=== PATIENT | female | born 1955 | race Caucasian/White ===

== ENCOUNTER 2017-03-14 09:17 | Outpatient (RCR) | payer BC ==
[2017-01-11 10:25] LABS: BASOPHILS % (AUTO) 0 % (0-10); EOSINOPHILS # (AUTO) 0.2 10^3/uL (0.0-0.3); EOSINOPHILS % (AUTO) 3 % (0-10); LYMPHOCYTES # (AUTO) 1.5 X 10^3 (1.0-4.0); LYMPHOCYTES % (AUTO) 29 % (12-44); MEAN CORPUSCULAR HEMOGLOBIN 29 PG (25-34); MEAN CORPUSCULAR HGB CONC 33 G/DL (32-36); MEAN CORPUSCULAR VOLUME 88 FL (80-99); MEAN PLATELET VOLUME 8.6 FL (7.4-10.4); MONOCYTES # (AUTO) 0.5 X 10^3 (0.0-1.0); MONOCYTES % (AUTO) 10 % (0-12); NEUTROPHILS # (AUTO) 2.9 X 10^3 (1.8-7.8); NEUTROPHILS % (AUTO) 57 % (42-75); PLATELET COUNT 365 10^3/uL (130-400); RED CELL DISTRIBUTION WIDTH 14.4 % (10.0-14.5)
[2017-01-11 10:54] LABS: ALANINE AMINOTRANSFERASE 33 U/L (0-55); ALBUMIN 4.3 G/DL (3.2-4.5); ANION GAP 7 MMOL/L (5-14); ASPARTATE AMINO TRANSFERASE 23 U/L (5-34); BILIRUBIN,TOTAL 0.4 MG/DL (0.1-1.0); BLOOD UREA NITROGEN 14 MG/DL (7-18); BUN/CREATININE RATIO 17; CALCIUM 9.9 MG/DL (8.5-10.1); CARBON DIOXIDE 28 MMOL/L (21-32); CHLORIDE 106 MMOL/L (98-107); CREATININE SERUM 0.81 MG/DL (0.60-1.30); GFR ESTIMATED > 60; GLUCOSE 84 MG/DL (70-105); POTASSIUM 4.2 MMOL/L (3.6-5.0); SODIUM 141 MMOL/L (135-145); TOTAL PROTEIN 7.1 G/DL (6.4-8.2)
[2017-01-11 11:50] LABS: PEP REPORT SEE PATH REPORT
[2017-01-12 02:03] LABS: IMMUNOGLOBULIN IGA 177 mg/dL (71-263); IMMUNOGLOBULIN IGG 973 mg/dL (672-1680)
[2017-01-12 04:15] LABS: LIGHT CHAIN KAPPA SERUM QUANT 14.24 mg/L (3.30-19.40); LIGHT CHAIN LAMBDA SERUM QUANT 10.31 mg/L (5.71-26.30)
[2017-01-12 06:56] LABS: IMMUNOGLOBULIN IGM 38 mg/dL (47-209)
[2017-01-13 12:41] LABS: CLIN PATHOLOGY REPORT FOOTNOTE
[2017-01-13 12:42] LABS: SERUM PROTEIN ELEC DETAIL L-17-0002081
[~2017-03-14 09:17] MED LIST: ACID1TAB5 PO; ASCO500T20 PO; BETA CAROTENE PO; CALC-80 PO; CEFD300C3 PO; CLIN300C3 PO; FOLI0.8T PO; GLUC1TAB60 PO; LVT.088T PO; MELO-195 PO; METR500T PO; SIMV40TA2 PO; VITA1TAB74 PO; [UNRECOGNIZED DRUG - OTHER] PO
[2017-03-14 09:29] LABS: BASOPHILS % (AUTO) 0 % (0-10); EOSINOPHILS # (AUTO) 0.1 10^3/uL (0.0-0.3); EOSINOPHILS % (AUTO) 1 % (0-10); LYMPHOCYTES # (AUTO) 1.2 X 10^3 (1.0-4.0); LYMPHOCYTES % (AUTO) 23 % (12-44); MEAN CORPUSCULAR HEMOGLOBIN 29 PG (25-34); MEAN CORPUSCULAR HGB CONC 32 G/DL (32-36); MEAN CORPUSCULAR VOLUME 89 FL (80-99); MEAN PLATELET VOLUME 9.2 FL (7.4-10.4); MONOCYTES # (AUTO) 0.6 X 10^3 (0.0-1.0); MONOCYTES % (AUTO) 12 % (0-12); NEUTROPHILS # (AUTO) 3.3 X 10^3 (1.8-7.8); NEUTROPHILS % (AUTO) 64 % (42-75); PLATELET COUNT 229 10^3/uL (130-400); RED BLOOD COUNT 4.63 10^6/uL (4.35-5.85); RED CELL DISTRIBUTION WIDTH 14.7 % (10.0-14.5); WHITE BLOOD COUNT 5.2 10^3/uL (4.3-11.0)
[2017-03-14 12:15] LABS: BAND NEUTROPHILS 4 %; BASOPHILS % (MANUAL) 0 %; EOSINOPHILS % (MANUAL) 1 %; LYMPHOCYTES % (MANUAL) 22 %; NEUTROPHILS % (MANUAL) 62 %; POIKILOCYTOSIS SLIGHT; REACTIVE LYMPHOCYTES 3 %
== END 2017-04-11 | disposition home or self-care (01) ==
LOC: ONC 09:17
PROVIDERS: ATTEND Internal Medicine Hematology & Oncology
DX: D72.819 Decreased white blood cell count, unspecified (principal); E03.9 Hypothyroidism, unspecified; E78.00 Pure hypercholesterolemia, unspecified; Z87.01 Personal history of pneumonia (recurrent); Z79.899 Other long term (current) drug therapy
CPT/HCPCS: 36415; 80053; 82784; 83883; 84155; 84165; 85007; 85025; 85027; 99213; 99214

== ENCOUNTER 2017-04-18 11:52 | Inpatient (IN) | payer BC ==
[~2017-04-18] VITALS: Ht 165.1 cm; Wt 49.6 kg
[2017-04-18] MEDS ORDERED: ONDANSETRON 4 MG/2 ML (SDV) Z0FRAN IV PRN (12:15)
[2017-04-18] MEDS ORDERED: PATIENT MAY USE OWN MEDS, ALL PO SCH (12:15)
--- NOTE | 2017-04-18 12:37 | History & Physicial ---
History of Present Illness History of Present Illness Reason for visit/HPI This is a 61 year old female who presented to by office with fever, joint pain and rash. She stated she had been in [place] last week and on her way home noticed that she was having joint pains especially in her shoulders, upper arms and knees. She then spiked a fever and over the weekend she broke out in a rash to both upper arms and to the left knee. She noticed this morning that the rash was also starting on the right knee. She presented to my office for evaluation and was found to have a vesicular shingles looking rash to both upper arms and bilateral knees. It was decided to directly admit her for disseminated shingles and further evaluation and treatment. Date of Admission I consulted on this patient on 04/18/17 12:32 Attending Physician Alanna Gibbons DO Admitting Physician Alanna Gibbons DO Consult Allergies and Home Medications Allergies Coded Allergies: Meperidine HCl (Verified Allergy, Unknown, 06/01/11) Codeine (Verified Allergy, 10/15/10) Home Medications Acidophilus/Bulgaricus 1 Each Tab.chew, 2 EACH PO BID, (Reported) Ascorbic Acid 500 Mg Tablet, 500 MG PO DAILY, (Reported) Calcium Carbonate/Vitamin D3 1 Each Tablet, 1 EACH PO DAILY, (Reported) Clindamycin Hcl 300 Mg Capsule, 1 EACH PO TID, (Reported) Folic Acid 0.8 Mg Tablet, 1 EACH PO DAILY, (Reported) Swnzaqsf-Eczwclu-Msoo 149-Hyal 1 Each Tablet, 2 EACH PO, (Reported) Levothyroxine Sodium 88 Mcg Tablet, 1 EACH PO DAILY, (Reported) Meloxicam 15 Mg Tablet, 1 EACH PO DAILY, (Reported) Metronidazole 500 Mg Tab, 1 EACH PO TID, (Reported) Vitamin B Complex 1 Each Tablet, 1 EACH PO, (Reported) Past Mjysjqb-Jwpejb-Bazirn Hx Respiratory Hx Respiratory Disorders: Yes Cardiovascular Hx Cardiovascular Disorders: No Neurological Hx Neurological Disorders: No Reproductive System Hx Reproductive Disorders: No Genitourinary Hx Genitourinary Disorders: No Gastrointestinal Hx Gastrointestinal Disorders: No Musculoskeletal Hx Musculoskeletal Disorders: Yes Endocrine Hx Endocrine Disorders: Yes HEENT HX ENT Disorders: No Psychosocial Hx Psychiatric Problems: No Blood Transfusions Hx Blood Disorders: No Constitutional: fever, weakness EENTM: No blurred vision, No dental problems, No double vision, No ear discharge, No ear pain, No epistaxis, No eye pain, No hearing loss, No hoarseness, No mouth pain, No mouth swelling, No no symptoms reported, No nose congestion, No nose pain, No other, No see HPI, No tearing, No throat pain, No throat swelling, No vision loss Respiratory: cough (feels like from allergeis) Cardiovascular: No no symptoms reported, No see HPI, No chest pain, No edema, No Hx of Intervention, No palpitations, No syncope, No vascular heart diseas, No other Gastrointestinal: No RUQ, No LUQ, No RLQ, No LLQ, No no symptoms reported, No see HPI, No abdominal pain, No constipation, No diarrhea, No dysphagia, No hematemesis, No heartburn, No jaundice, No loss of appetite, No melena, No nausea, No vomiting, No other Genitourinary: No no symptoms reported, No see HPI, No decreased output, No discharge, No dysuria, No frequency, No hematuria, No hesitancy, No incontinence , No nocturia, No pain, No other Musculoskeletal: joint pain Skin: rash Psychiatric/Neurological: Denies No Symptoms Reported, Denies See HPI, Denies Anxiety, Denies Depressed, Denies Emotional Problems, Denies Headache, Denies Numbness, Denies Paresthesia, Denies Pre-Existing Deficit, Denies Seizure, Denies Tingling, Denies Tremors, Denies Weakness, Denies Other Physical Exam Vital Signs Capillary Refill : General Appearance: Mild Distress HEENT: Normal ENT Inspection Neck: Non Tender, Supple Respiratory: Lungs Clear Cardiovascular: Regular Rate, Rhythm Gastrointestinal: Normal Bowel Sounds, Non Tender, Soft Rectal: Deferred Back: No CVA Tenderness Extremity: Non Tender, No Calf Tenderness, No Pedal Edema Neurologic/Psychiatric: Alert, Oriented x3 Skin: Rash (bilateral upper arms and bilateral knees with vesicular rash with erythemic base) Assessment/Plan Assessment and Plan 1. Disseminated Shingles--Admit and check lab including tick titers and blood cultures, cover with IV zovirax and toradol for pain Problems: ALANNA GIBBONS DO April 18, 2017 12:37
[2017-04-18] MEDS ORDERED: NFBIOT1000 PO (13:26)
[2017-04-18] MEDS ORDERED: SIMV40TA4 PO (13:26)
[2017-04-18] MEDS ORDERED: VITA400C60 PO (13:26)
[2017-04-18] MEDS ORDERED: LEVO75TA6 PO (13:26)
[2017-04-18] MEDS ORDERED: GLUC1TAB29 PO (13:28)
[2017-04-18] MEDS ORDERED: MELA1TAB10 PO (13:32)
[2017-04-18] MEDS ORDERED: BETA2500 PO (13:32)
[2017-04-18] MEDS: NS IV 1000 ML 1,000 ML IV SCH ×2 (13:43→22:01)
[2017-04-18] MEDS: ACETAMINOPHEN 325 MG TABLET/CAPLET (TYLENOL) PO PRN (13:47)
[2017-04-18] MEDS: KETOROLAC 30 MG/ML VIAL IV SCH ×2 (13:48→22:01)
[2017-04-18] MEDS ORDERED: CATHETER FLUSH 10 ML SYR IV PRN (14:00)
[2017-04-18] MEDS ORDERED: ACYCLOVIR INJECTION 800 MG in NS (IVPB) 250 ML IV SCH (14:00)
[2017-04-18] MEDS: ACYCLOVIR INJECTION 800 MG in NS (IVPB) 250 ML IV SCH ×2 (14:11→22:01)
[2017-04-18 14:16] VITALS: BP 124/74
[2017-04-18 15:07] LABS: BASOPHILS % (AUTO) 0 % (0-10); EOSINOPHILS % (AUTO) 1 % (0-10); LYMPHOCYTES # (AUTO) 1.1 X 10^3 (1.0-4.0); LYMPHOCYTES % (AUTO) 22 % (12-44); MEAN CORPUSCULAR HEMOGLOBIN 29 PG (25-34); MEAN CORPUSCULAR HGB CONC 32 G/DL (32-36); MEAN CORPUSCULAR VOLUME 89 FL (80-99); MEAN PLATELET VOLUME 9.3 FL (7.4-10.4); MONOCYTES # (AUTO) 0.7 X 10^3 (0.0-1.0); MONOCYTES % (AUTO) 14 % (0-12); NEUTROPHILS % (AUTO) 63 % (42-75); PLATELET COUNT 192 10^3/uL (130-400); RED BLOOD COUNT 4.52 10^6/uL (4.35-5.85); RED CELL DISTRIBUTION WIDTH 14.1 % (10.0-14.5); WHITE BLOOD COUNT 4.8 10^3/uL (4.3-11.0)
[2017-04-18 15:34] LABS: ALANINE AMINOTRANSFERASE 17 U/L (0-55); ANION GAP 7 MMOL/L (5-14); ASPARTATE AMINO TRANSFERASE 21 U/L (5-34); BILIRUBIN,TOTAL 0.6 MG/DL (0.1-1.0); BLOOD UREA NITROGEN 12 MG/DL (7-18); BUN/CREATININE RATIO 16; CALCIUM 9.5 MG/DL (8.5-10.1); CARBON DIOXIDE 26 MMOL/L (21-32); CHLORIDE 105 MMOL/L (98-107); CREATININE SERUM 0.74 MG/DL (0.60-1.30); GFR ESTIMATED > 60; GLUCOSE 143 MG/DL (70-105); SODIUM 138 MMOL/L (135-145); TOTAL PROTEIN 6.8 G/DL (6.4-8.2); hs C REACTIVE PROTEIN 1.34 MG/DL (0.00-0.50)
[2017-04-18 15:55] VITALS: BP 97/59
[2017-04-18 15:57] LABS: THYROID STIMULATING HORMONE 1.65 UIU/ML (0.35-4.94)
[2017-04-18 17:58] LABS: BILIRUBIN,URINE NEGATIVE (NEGATIVE); KETONES,URINE NEGATIVE (NEGATIVE); LEUKOCYTE ESTERASE ,URINE NEGATIVE (NEGATIVE); NITRITE,URINE NEGATIVE (NEGATIVE); PH,URINE 7 (5-9); PROTEIN,URINE NEGATIVE (NEGATIVE); UROBILINOGEN,URINE NORMAL (NORMAL)
[2017-04-18 18:09] LABS: SQUAMOUS EPITHELIAL CELL,UR 0-2 /HPF; WBC,URINE RARE /HPF
[2017-04-18 20:18] VITALS: BP 96/62
[2017-04-18] MEDS: TEMAZEPAM 7.5 MG CAP (RESTORIL) PO PRN (22:10)
[2017-04-19 01:00] VITALS: BP 93/54
[2017-04-19 04:00] VITALS: BP 94/60
[2017-04-19] MEDS: NS IV 1000 ML 1,000 ML IV SCH ×2 (04:18→08:26)
[2017-04-19] MEDS: KETOROLAC 30 MG/ML VIAL IV SCH ×3 (05:17→21:17)
[2017-04-19] MEDS: LEVOTHYROXINE 75 MCG (LEVOTHROID) TABLET PO SCH (05:17)
[2017-04-19] MEDS: ACYCLOVIR INJECTION 800 MG in NS (IVPB) 250 ML IV SCH ×3 (05:17→21:17)
[2017-04-19 08:00] VITALS: BP 98/53
[2017-04-19 13:38] LABS: EHRLICHIA CHAFFEENSIS G ABY <1:16 (<1:16)
[2017-04-19 13:42] LABS: IGG ROCKY MOUNTAIN SPOTTED FEV <1:16 (<1:16); IGM ROCKY MOUNTAIN SPOTTED FEV <1:10 (<1:10)
[2017-04-19 15:35] VITALS: BP 94/58
--- NOTE | 2017-04-19 18:16 | Progress Note (SOAP) ---
Subjective Subjective/Events-last exam Fwup disseminated shingles. Joints not as sore and rash not as red and seems improved on knees. Objective Exam Vital Signs Date Time Temp Pulse Resp B/P (MAP) Pulse Ox O2 Delivery O2 Flow Rate FiO2 04/19/17 15:35 99.7 78 20 94/58 97 04/19/17 08:00 99.0 60 20 98/53 98 04/19/17 04:00 97.7 55 16 94/60 100 04/19/17 01:00 93/54 04/19/17 00:00 98.0 61 16 95 04/18/17 20:18 97.9 56 20 96/62 98 I & O 04/19/17 07:00 Intake Total 2518 ml Output Total 1200 ml Balance 1318 ml Capillary Refill : General Appearance: No Apparent Distress Neck: Supple Respiratory: Lungs Clear Cardiovascular: Regular Rate, Rhythm Extremity: Non Tender, No Calf Tenderness, No Pedal Edema Neurologic/Psychiatric: Alert, Oriented x3 Skin: Rash (bilateral vesicles to arms with less erythema and bilateral knee vesicles improving) Results Lab Microbiology 04/18/17 Blood Culture - Preliminary, Resulted No growth Assessment/Plan Assessment/Plan Assess & Plan/Chief Complaint 1. Disseminated Shingles--continue IV zovirax and recheck lab in AM Clinical Quality Measures DVT/VTE Risk/Contraindication: Risk Factor Score Per Nursin RFS Level Per Nursing on Admit: 2=Moderate DELPHINE ADAMS DO April 19, 2017 18:16
[2017-04-19] MEDS: ACETAMINOPHEN 325 MG TABLET/CAPLET (TYLENOL) PO PRN (18:37)
[2017-04-19 18:38] LABS: LYME AB G M 0.03 Index (0.00-0.89)
[2017-04-19] MEDS: TEMAZEPAM 7.5 MG CAP (RESTORIL) PO PRN (22:48)
[2017-04-20 00:30] VITALS: BP 96/61
[2017-04-20] MEDS: LEVOTHYROXINE 75 MCG (LEVOTHROID) TABLET PO SCH (05:14)
[2017-04-20] MEDS: ACYCLOVIR INJECTION 800 MG in NS (IVPB) 250 ML IV SCH ×3 (05:15→21:20)
[2017-04-20] MEDS: KETOROLAC 30 MG/ML VIAL IV SCH (05:15)
[2017-04-20 05:21] LABS: BASOPHILS % (AUTO) 1 % (0-10); EOSINOPHILS # (AUTO) 0.1 10^3/uL (0.0-0.3); EOSINOPHILS % (AUTO) 1 % (0-10); LYMPHOCYTES % (AUTO) 25 % (12-44); MEAN CORPUSCULAR HEMOGLOBIN 29 PG (25-34); MEAN CORPUSCULAR HGB CONC 32 G/DL (32-36); MEAN CORPUSCULAR VOLUME 90 FL (80-99); MEAN PLATELET VOLUME 9.9 FL (7.4-10.4); MONOCYTES # (AUTO) 0.6 X 10^3 (0.0-1.0); MONOCYTES % (AUTO) 16 % (0-12); NEUTROPHILS # (AUTO) 2.4 X 10^3 (1.8-7.8); NEUTROPHILS % (AUTO) 57 % (42-75); PLATELET COUNT 162 10^3/uL (130-400); RED BLOOD COUNT 3.79 10^6/uL (4.35-5.85); RED CELL DISTRIBUTION WIDTH 14.3 % (10.0-14.5); WHITE BLOOD COUNT 4.1 10^3/uL (4.3-11.0)
[2017-04-20 05:38] LABS: ALANINE AMINOTRANSFERASE 21 U/L (0-55); ALBUMIN 3.1 G/DL (3.2-4.5); ANION GAP 7 MMOL/L (5-14); ASPARTATE AMINO TRANSFERASE 25 U/L (5-34); BILIRUBIN,TOTAL 0.3 MG/DL (0.1-1.0); BLOOD UREA NITROGEN 10 MG/DL (7-18); BUN/CREATININE RATIO 14; CALCIUM 8.2 MG/DL (8.5-10.1); CARBON DIOXIDE 21 MMOL/L (21-32); CHLORIDE 116 MMOL/L (98-107); CREATININE SERUM 0.74 MG/DL (0.60-1.30); GFR ESTIMATED > 60; GLUCOSE 97 MG/DL (70-105); POTASSIUM 4.4 MMOL/L (3.6-5.0); SODIUM 144 MMOL/L (135-145); TOTAL PROTEIN 5.2 G/DL (6.4-8.2)
[2017-04-20 07:41] LABS: LYME AB INTERP Negative (Negative)
[2017-04-20 07:53] VITALS: BP 96/60
--- NOTE | 2017-04-20 13:06 | Progress Note (SOAP) ---
Subjective Subjective/Events-last exam Fwup disseminated shingles. Joints not as sore but may be more lesions to arms. Objective Exam Vital Signs Date Time Temp Pulse Resp B/P (MAP) Pulse Ox O2 Delivery O2 Flow Rate FiO2 04/20/17 07:53 98.5 67 20 96/60 95 04/20/17 00:30 97.2 63 20 96/61 96 04/19/17 19:30 99.9 04/19/17 15:35 99.7 78 20 94/58 97 I & O 04/20/17 07:00 Intake Total 2872 ml Output Total 3650 ml Balance -778 ml Capillary Refill : General Appearance: No Apparent Distress Neck: Supple Neurologic/Psychiatric: Alert, Oriented x3 Skin: Rash (more vesicles to bilateral upper arms) Results Lab Laboratory Tests 04/20/17 04:30: White Blood Count 4.1L, Red Blood Count 3.79L, Hemoglobin 10.9L, Hematocrit 34L , Mean Corpuscular Volume 90, Mean Corpuscular Hemoglobin 29, Mean Corpuscular Hemoglobin Concent 32, Red Cell Distribution Width 14.3, Platelet Count 162, Mean Platelet Volume 9.9, Neutrophils (%) (Auto) 57, Lymphocytes (%) (Auto) 25, Monocytes (%) (Auto) 16H, Eosinophils (%) (Auto) 1, Basophils (%) (Auto) 1, Neutrophils # (Auto) 2.4, Lymphocytes # (Auto) 1.0, Monocytes # (Auto) 0.6, Eosinophils # (Auto) 0.1, Basophils # (Auto) 0.0, Sodium Level 144, Potassium Level 4.4, Chloride Level 116H, Carbon Dioxide Level 21, Anion Gap 7, Blood Urea Nitrogen 10, Creatinine 0.74, Estimat Glomerular Filtration Rate > 60, BUN/ Creatinine Ratio 14, Glucose Level 97, Calcium Level 8.2L, Total Bilirubin 0.3, Aspartate Amino Transf (AST/SGOT) 25, Alanine Aminotransferase (ALT/SGPT) 21, Alkaline Phosphatase 51, Total Protein 5.2L, Albumin 3.1L Microbiology 04/18/17 Blood Culture - Preliminary, Resulted No growth Assessment/Plan Assessment/Plan Assess & Plan/Chief Complaint 1. Disseminated Shingles--continue IV zovirax and recheck lab in AM Clinical Quality Measures DVT/VTE Risk/Contraindication: Risk Factor Score Per Nursin RFS Level Per Nursing on Admit: 2=Moderate DELPHINE ADAMS DO April 20, 2017 1:06 pm
[2017-04-20] MEDS ORDERED: diphenhydrAMINE 50 MG/ML INJ (BENADRYL) IVP NR (14:00)
[2017-04-20] MEDS ORDERED: FAMOTIDINE 20MG/2ML IV (PEPCID) IVP NR (14:00)
[2017-04-20 15:37] VITALS: BP 97/59
[2017-04-20] MEDS ORDERED: FAMOTIDINE 20MG/2ML IV (PEPCID) IVP SCH (21:00)
[2017-04-20] MEDS: TEMAZEPAM 7.5 MG CAP (RESTORIL) PO PRN (22:38)
[2017-04-21 00:22] VITALS: BP 96/60
[2017-04-21 06:11] LABS: BASOPHILS % (AUTO) 1 % (0-10); EOSINOPHILS # (AUTO) 0.1 10^3/uL (0.0-0.3); EOSINOPHILS % (AUTO) 2 % (0-10); LYMPHOCYTES # (AUTO) 1.2 X 10^3 (1.0-4.0); LYMPHOCYTES % (AUTO) 28 % (12-44); MEAN CORPUSCULAR HEMOGLOBIN 29 PG (25-34); MEAN CORPUSCULAR HGB CONC 32 G/DL (32-36); MEAN CORPUSCULAR VOLUME 90 FL (80-99); MEAN PLATELET VOLUME 9.7 FL (7.4-10.4); MONOCYTES # (AUTO) 0.5 X 10^3 (0.0-1.0); MONOCYTES % (AUTO) 12 % (0-12); NEUTROPHILS # (AUTO) 2.5 X 10^3 (1.8-7.8); NEUTROPHILS % (AUTO) 58 % (42-75); PLATELET COUNT 167 10^3/uL (130-400); RED CELL DISTRIBUTION WIDTH 14.5 % (10.0-14.5); WHITE BLOOD COUNT 4.4 10^3/uL (4.3-11.0)
[2017-04-21] MEDS: LEVOTHYROXINE 75 MCG (LEVOTHROID) TABLET PO SCH (06:13)
[2017-04-21] MEDS: ACYCLOVIR INJECTION 800 MG in NS (IVPB) 250 ML IV SCH (06:14)
[2017-04-21 08:00] VITALS: BP 105/63
[2017-04-21] MEDS ORDERED: DIPH25CA79 PO (08:47)
[2017-04-21] MEDS ORDERED: VALA10004 PO (08:47)
[2017-04-21] MEDS ORDERED: CETI10CA PO (08:47)
[2017-04-21] MEDS ORDERED: FAMO-119 PO (08:47)
--- NOTE | 2017-04-21 08:48 | Discharge Inst-Simple/Standard ---
Discharge Inst-Standard Discharge Medications New, Converted or Re-Newed RX: Transmitted to Pharmacy Patient Instructions/Follow Up Plan of Care/Instructions/FU: Fwup with me Tuesday or Tuesday of next week Activity as Tolerated: Yes Discharge Diet: No Restrictions Planned Outpatient Orders/Ref. Pneu Vac Indicated: Yes DELPHINE ADAMS DO April 21, 2017 8:48 am
[2017-04-21] MEDS ORDERED: LEVO75TA6 PO (08:49)
[2017-04-21] MEDS ORDERED: FAMOTIDINE 20 MG (PEPCID) TABLET PO SCH (09:00)
== END 2017-04-21 10:50 | disposition home or self-care (01) | DRG 866 ==
LOC: 4TH 12:35
PROVIDERS: ADMIT Family Medicine; ATTEND Family Medicine
DX: B02.7 Disseminated zoster (principal)
CPT/HCPCS: 36415; 80053; 81000; 84443; 85025; 86141; 86618; 86666; 86668; 86757; 87040

== ENCOUNTER → 2017-07-13 | Outpatient (CLI) | payer BC ==
[~2017-07-13] MED LIST changes: +BETA2500 PO; +CETI10CA PO; +DIPH25CA79 PO; +FAMO-119 PO; +GLUC1TAB29 PO; +LEVO75TA6 PO; +MELA1TAB10 PO; +NFBIOT1000 PO; +SIMV40TA4 PO; +VALA10004 PO; +VITA400C60 PO
--- NOTE | 2017-07-13 19:12 | Diagnostic Imaging Report ---
INDICATION: Digital mammogram bilateral screening with tomosynthesis. This study was compared to the prior exam of 07/12/16, 07/09/15 and 07/08/14. At this time, there are no current complaints. The current study was also evaluated with a Computer Aided Detection (CAD) system. FINDINGS: The fibroglandular tissue in both breasts is heterogeneously dense. This does limit the sensitivity of this exam. When compared to the prior study, there does not appear to have been any significant change. There is no primary or secondary sign of malignancy noted. The 3D tomographic views also fail to show any sign of malignancy. IMPRESSION: There is no evidence of malignancy. ACR BI-RADS Category 1: Negative. Result letter will be mailed to the patient. Note: At least 10% of breast cancer is not imaged by mammography. Dictated by: Dictated on workstation # [id number]
== END ==
LOC: RAD 10:23
PROVIDERS: ATTEND Family Medicine
DX: Z12.31 Encounter for screening mammogram for malignant neoplasm of breast (principal)
CPT/HCPCS: 77067

== ENCOUNTER → 2018-03-14 | Outpatient (CLI) | payer BC ==
--- NOTE | 2018-03-14 14:20 | Diagnostic Imaging Report ---
INDICATION: Stretching with fall, hitting ribs on something. Continued right rib pain. Trauma approximately 1 week ago. TECHNIQUE: Two view chest 2:16 PM CORRELATION STUDY: 06/07/2016 FINDINGS: The heart size, mediastinal configuration and pulmonary vasculature are within normal limits. The lungs are clear with no consolidating infiltrate. There is no significant pleural effusion or pneumothorax. Calcified granuloma of the right mid lower lung field unchanged. No acute displaced fracture. Stomach distended with gas. IMPRESSION: 1. No radiographic evidence for acute abnormality of the chest. Dictated by: Dictated on workstation # [id number]
== END ==
LOC: RAD 13:41
PROVIDERS: ATTEND Nurse Practitioner Family
DX: S29.8XXA Other specified injuries of thorax, initial encounter (principal)
CPT/HCPCS: 71046

== ENCOUNTER → 2018-07-13 | Outpatient (CLI) | payer BC ==
--- NOTE | 2018-07-13 17:42 | Diagnostic Imaging Report ---
INDICATION: Routine screening. Comparison is made with prior exams from 07/13/2017 and 07/12/2016. 2-D and 3-D bilateral screening mammography was performed. The current study was also evaluated with a Computer Aided Detection (CAD) system. FINDINGS: Both breasts are heterogeneously dense, limiting the sensitivity of mammography. The parenchymal pattern is stable. No dominant mass or malignant-appearing microcalcifications are seen. Circumscribed density in the lateral left breast appears stable and consistent with intraparenchymal node. The axillae are unremarkable. IMPRESSION: No mammographic features suspicious for malignancy are identified. ACR BI-RADS Category 2: Benign findings. Result letter will be mailed to the patient. Note: At least 10% of breast cancer is not imaged by mammography. Dictated by: Dictated on workstation # [id number]
== END ==
LOC: RAD 15:10
PROVIDERS: ATTEND Family Medicine
DX: Z12.31 Encounter for screening mammogram for malignant neoplasm of breast (principal)
CPT/HCPCS: 77067

== ENCOUNTER 2019-08-01 08:30 | Outpatient (CLI) | payer MEDICARE, OTHER ==
[~2019-08-01] VITALS: Ht 165.1 cm; Wt 52.2 kg
[~2019-08-01 08:30] MED LIST changes: +LEVO75TA PO
== END 2019-08-01 14:35 | disposition home or self-care (01) ==
LOC: PREOP 08:30
PROVIDERS: ATTEND Internal Medicine
DX: Z01.818 Encounter for other preprocedural examination (principal)

== ENCOUNTER 2019-08-03 08:29 | Day surgery (SDC) | payer MEDICARE, OTHER ==
[2019-08-03] VITALS (16 sets, daily range): BP systolic 103–127; BP diastolic 59–88
[~2019-08-03] VITALS: Ht 165.1 cm; Wt 49.9 kg
[~2019-08-03 08:29] MED LIST changes: +D5 LR IV SOLUTION 1,000 ML IV ONE
[2019-08-03] MEDS ORDERED: D5 LR IV SOLUTION 1,000 ML IV STA (08:49)
[2019-08-03] MEDS ORDERED: MIDAZOLAM 2 MG/2 ML (VERSED) VIAL IVP ONE (09:00)
[2019-08-03] MEDS ORDERED: fentaNYL INJECTION 100 MCG/2 ML AMP IVP ONE (09:00)
[2019-08-03] MEDS ORDERED: LIDOCAINE JELLY 2% 6 ML SYRINGE MM PRN (09:00)
[2019-08-03] MEDS ORDERED: MIDAZOLAM 2 MG/2 ML (VERSED) VIAL ONE (09:05)
[2019-08-03] MEDS ORDERED: fentaNYL INJECTION 100 MCG/2 ML AMP ONE (09:05)
[2019-08-03] MEDS ORDERED: LIDOCAINE JELLY 2% 6 ML SYRINGE ONE (09:09)
--- NOTE | 2019-08-03 09:35 | Pre-Op Note & Conscious Sedat ---
Pre-Operative Progress Note H&P Reviewed The H&P was reviewed, patient examined and no changes noted. Date H&P Reviewed: Aug 03, 2019 Time H&P Reviewed: 08:55 Conscious Sedation Pre-Proced ASA Score 2 For ASA 3 and 4: Consider anesthesia and medical clearance. Also, for patients with a history of failed moderate sedation consider anesthesia. Airway Lungs Heart ASA score ASA 1: a normal healthy patient ASA 2: a patient with a mild systemic disease (mid diabetes, controlled hypertension, obesity ASA 3: a patient with a severe systemic disease that limits activity (angina, COPD, prior Myocardial infarction) ASA 4: a patient with an incapacitating disease that is a constant threat to life (CHF, renal failure) ASA 5: a moribund patient not expected to survive 24 hrs. (ruptured aneurysm) ASA 6: a declared brain- patient whose organs are being harvested. For emergent operations, add the letter E after the classification Mallampati Classification Grade 2 Sedation Plan Analgesia, Amnesia, Plan communicated to team members, Discussed options with patient/fam, Discussed risks with patient/fam The patient is an appropriate candidate to undergo the planned procedure, sedation, and anesthesia. The patient immediately re-assessed prior to indication. WILLIAM RICO MD Aug 03, 2019 09:35
--- NOTE | 2019-08-03 14:03 | OPERATIVE REPORT ---
DATE OF SERVICE: 08/03/2019 COLONOSCOPY SUMMARY INDICATION FOR THE PROCEDURE: Screening colonoscopy. DESCRIPTION OF PROCEDURE: The patient was placed in the left lateral decubitus position. Prior to undergoing colonoscopy, digital rectal evaluation was performed. Anal sphincter tone was normal and the perianal reflex was intact. No abnormalities. No additional inspection of anal canal or distal rectal vault. The colonoscope was then inserted into the rectum under direct visualization, advanced to the cecum. The cecum was identified by identification of the ileocecal valve and cecal strap. Photographic documentation was obtained. The quality of prep was good. The patient tolerated the procedure well. FINDINGS: There was no evidence for internal or external hemorrhoids and the rectum was unremarkable. Several small sigmoid diverticulum were present and one fecalith was noted in the sigmoid colon without evidence for diverticulitis. No other sigmoid colonic abnormalities were appreciated. The descending colon, transverse colon and ascending colon were unremarkable. A diminutive 2 mm sessile cecal polyp was noted. It was photographed and biopsied and ablated with no subsequent blood loss. ASSESSMENT AND PLAN: 1. One diminutive polyp was removed from the cecum. As long as there is no surprise on histopathology report, I would advocate consideration for repeat screening colonoscopy in 10 years. 2. Mild diverticular disease confined to the sigmoid colon was present without evidence for diverticulitis. I thank you for the referral of this pleasant lady. Sincerely, Job ID: [id number] DocumentID: [id number] Dictated Date: 08/03/2019 10:53:01 First Responder Date: 08/03/2019 14:02:20 Dictated By: WILLIAM RICO MD
--- NOTE | 2019-08-13 13:52 | HISTORY AND PHYSICAL ---
DATE OF SERVICE: 08/03/2019 COLONOSCOPY HISTORY AND PHYSICAL HISTORY OF PRESENT ILLNESS: The patient is a 64-year-old white female referred by Dr. Gibbons for screening colonoscopy. She had one another colonoscopy done in [address] Llanes. She had no evidence for neoplasia, but was reported that she had diverticular disease, although the degree was not mentioned. She is not aware of any past history of diverticulitis. She denies any bowel habit changes, diarrhea or constipation problems. She has noted no melena or bright red blood per rectum. FAMILY HISTORY: Pertinent for one uncle, who was diagnosed with colon cancer and succumbed in his 50s to the disease. She is not aware of any other family history for colon polyps or colon cancer, but doubt that either of her parents had ever undergone colonoscopy. PAST MEDICAL HISTORY: Significant for Constance's thyroiditis and hyperlipidemia for which she takes Synthroid 75 mcg daily and simvastatin 40 mg daily. She has no known history of vascular disease. She was admitted for what was felt to be disseminated zoster in 2017 for which she had a full recovery with no reported sequelae. 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 PAST SURGICAL HISTORY: She has no significant past surgical history. FAMILY HISTORY: Other than noted above, father of COPD and was heavy smoker at the age of 83. Mother of pneumonia and sepsis at the age of 91. PHYSICAL EXAMINATION: GENERAL: Reveals a well-appearing white female in no acute distress. HEENT: Unremarkable. She is a Mallampati 2 oropharyngeal configuration. CHEST: Clear to auscultation. CARDIOVASCULAR: Revealed a regular rate and rhythm without murmur, S3 or S4. VITAL SIGNS: Blood pressure 120/70, weight 115.6 pounds. ABDOMEN: Soft, supple without mass, organomegaly or tenderness. EXTREMITIES: Reveal no cyanosis, clubbing or edema. ASSESSMENT AND PLAN: The patient is set up for screening colonoscopy on 08/06/2019. Prep instructions with the Braxton-prep kit were given and questions were answered. I thank you for the referral of this pleasant lady. Job ID: [id number] DocumentID: [id number] Dictated Date: 07/18/2019 17:02:56 Special Procedures Technologist Date: 07/18/2019 17:41:57 Dictated By: WILLIAM RICO MD <Dictated by WILLIAM RIOC MD> <Electronically signed by WILLIAM RICO MD> 07/24/19 1811 [facility]
== END 2019-08-03 10:43 | disposition home or self-care (01) ==
LOC: ENDO 08:29
PROVIDERS: ATTEND Internal Medicine
DX: Z12.11 Encounter for screening for malignant neoplasm of colon (principal); D12.0 Benign neoplasm of cecum; K57.30 Diverticulosis of large intestine without perforation or abscess without bleeding; E78.5 Hyperlipidemia, unspecified; Z79.899 Other long term (current) drug therapy; Z80.0 Family history of malignant neoplasm of digestive organs; Z83.6 Family history of other diseases of the respiratory system
CPT/HCPCS: 88305

== ENCOUNTER → 2020-07-21 | Outpatient (CLI) | payer MEDICARE, OTHER ==
[~2020-07-21] MED LIST changes: -BETA2500 PO; -D5 LR IV SOLUTION 1,000 ML IV ONE; +SIMV40TA25 PO; -SIMV40TA4 PO; +[UNRECOGNIZED DRUG - CODE] PO
--- NOTE | 2020-07-21 10:11 | Diagnostic Imaging Report ---
INDICATION: Routine screening. COMPARISON: 07/20/2019 and 07/13/2018. TECHNIQUE: 2D and 3D bilateral screening mammography was performed with CAD. FINDINGS: Scattered fibroglandular densities are identified bilaterally. The parenchymal pattern is stable. No mass is identified. No malignant appearing microcalcifications are seen. The axillae are unremarkable. IMPRESSION: No mammographic features suspicious for malignancy are identified. ACR BI-RADS Category 1: Negative. Result letter will be mailed to the patient. Note: At least 10% of breast cancer is not imaged by mammography. Dictated by: Dictated on workstation # [id number]
== END ==
LOC: RAD 08:30
PROVIDERS: ATTEND Family Medicine
DX: Z12.31 Encounter for screening mammogram for malignant neoplasm of breast (principal)
CPT/HCPCS: 77063; 77067

== ENCOUNTER → 2021-07-23 | Outpatient (CLI) | payer MEDICARE, OTHER ==
--- NOTE | 2021-07-23 12:24 | Diagnostic Imaging Report ---
INDICATION: Routine screening. COMPARISON: 07/21/2020 and 07/20/2019. TECHNIQUE: 2D and 3D bilateral screening mammography was performed with CAD. FINDINGS: Both breasts are heterogeneously dense, limiting the sensitivity of mammography. No mass or malignant-appearing microcalcifications are seen. The axillae are unremarkable. IMPRESSION: No mammographic features suspicious for malignancy are identified. ACR BI-RADS Category 1: Negative. Result letter will be mailed to the patient. Note: At least 10% of breast cancer is not imaged by mammography. Dictated by: Dictated on workstation # [id number]
== END ==
LOC: RAD 10:30
PROVIDERS: ATTEND Family Medicine
DX: Z12.31 Encounter for screening mammogram for malignant neoplasm of breast (principal)
CPT/HCPCS: 77063; 77067

== ENCOUNTER → 2022-07-26 | Outpatient (CLI) | payer MEDICARE, OTHER ==
--- NOTE | 2022-07-26 10:55 | Diagnostic Imaging Report ---
Indication: Routine screening. Comparison is made with prior mammogram 07/23/2021 and 07/21/2020. 2-D and 3-D bilateral screening mammography was performed with CAD. CAD is utilized. The current study was also evaluated with a Computer Aided Detection (CAD) system. Both breasts are heterogeneously dense, limiting the sensitivity of mammography. The parenchymal pattern is stable. No mass or malignant-appearing microcalcifications are seen. Axillae are unremarkable. IMPRESSION: BI-RADS Category 1 No mammographic features suspicious for malignancy are identified. ACR BI-RADS Category 1: Negative. Result letter will be mailed to the patient. Note: At least 10% of breast cancer is not imaged by mammography. Dictated by: Dictated on workstation # [id number]
== END ==
LOC: RAD 08:04
PROVIDERS: ATTEND Family Medicine
DX: Z12.31 Encounter for screening mammogram for malignant neoplasm of breast (principal)
CPT/HCPCS: 77063; 77067

== ENCOUNTER → 2023-07-27 | Outpatient (CLI) | payer MEDICARE, OTHER ==
--- NOTE | 2023-07-27 09:32 | Diagnostic Imaging Report ---
INDICATION: Routine screening. COMPARISON: 07/26/2022 and 07/23/2021. TECHNIQUE: 2D and 3D bilateral screening mammography was performed with CAD. FINDINGS: Both breasts are heterogeneously dense, limiting the sensitivity of mammography. The parenchymal pattern is stable. No mass or malignant-appearing microcalcifications are seen. The axillae are unremarkable. IMPRESSION: No mammographic features suspicious for malignancy. ACR BI-RADS Category 1: Negative. Result letter will be mailed to the patient. Note: At least 10% of breast cancer is not imaged by mammography. Dictated by: Dictated on workstation # [id number]
== END ==
LOC: RAD 07:08
PROVIDERS: ATTEND Family Medicine
DX: Z12.31 Encounter for screening mammogram for malignant neoplasm of breast (principal)
CPT/HCPCS: 77063; 77067

== ENCOUNTER → 2023-09-06 | Outpatient (CLI) | payer MEDICARE, OTHER ==
--- NOTE | 2023-09-06 10:03 | Diagnostic Imaging Report ---
INDICATION: Postmenopausal state. COMPARISON: None available. FINDINGS: AP Spine L1-L4: [BMD (g/cm2): 0.682] [T-Score: -4.3] [Z-Score: -2.2] [BMD Previous: na] [BMD % Change: na] LT Hip Neck: [BMD (g/cm2): 0.771] [T-Score: -1.9] [Z-Score: 0.0] LT Hip Total: [BMD (g/cm2):0.800] [T-Score:-1.7] [Z-Score: 0.1] [BMD Previous: na] [BMD % Change: na] RT Hip Neck: [BMD (g/cm2):0.727] [T-Score:-2.2] [Z-Score:-0.3] RT Hip Total: [BMD (g/cm2):0.758] [T-score:-2.0] [Z-Score:-0.3] [BMD Previous:na] [BMD % Change:na] *Indicates significant change from prior examination based on 95% confidence level. World Health Organization criteria for BMD interpretation classify patients as Normal (T-score at or above -1.0), Osteopenic (T-score between -1.0 and -2.5) or Osteoporotic (T-score at or below -2.5). LIMITATIONS AND MODIFICATION: None. FRACTURE RISK (FRAX SCORE): The ten year probability of (%): Major Osteoporotic Fracture: [18.5] Hip Fracture: [4.8] IMPRESSION: 1. Osteoporosis. 2. Baseline examination. 3. See below National Osteoporosis Foundation guidelines on when to potentially initiate pharmacologic therapy. Based on the National Osteoporosis Foundation Guidelines, pharmacologic treatment should be initiated in any of the following, unless clinical conditions suggest otherwise: * Any patient with prior fragility fracture of the hip or vertebrae. A spine fracture indicates 5X risk for subsequent spine fracture and 2X risk for subsequent hip fracture. * Osteoporosis (T-score <-2.5). * Postmenopausal women and men age 50 and older with low bone mass/osteopenia (T-score between -1.0 and -2.5) by DXA and 10-year major osteoporotic fracture greater than 20% or a 10-year probability of hip fracture greater than 3%. These fracture risks are supplied above in the FRAX score, if applicable. * Clinician judgement and/or patient preferences may indicate treatment for people with 10-year fracture probabilities above or below these levels. Dictated by: Dictated on workstation # [id number]
== END ==
LOC: RAD 08:38
PROVIDERS: ATTEND Family Medicine
DX: M81.0 Age-related osteoporosis without current pathological fracture (principal); Z78.0 Asymptomatic menopausal state
CPT/HCPCS: 77080